=== PATIENT | female | born 1975 | race Caucasian/White ===

== ENCOUNTER 2016-10-14 07:14 | Emergency (ER) | payer MEDICAID ==
[~2016-10-14] VITALS: Ht 167.6 cm; Wt 98.2 kg
[2016-10-14 07:24] VITALS: BP 138/85; PULSE 75; RESP 16; TEMP 98.2; O2SAT 97
[2016-10-14] MEDS ORDERED: NAPR500 PO (07:28)
[2016-10-14] MEDS ORDERED: CYCL5TAB PO (07:28)
[2016-10-14] MEDS ORDERED: ULTR50TA5 PO (07:51)
[2016-10-14] MEDS ORDERED: AMOX500T PO (07:51)
--- NOTE | 2016-10-14 07:52 | PD ---
HPI Chief Complaint: Oral / Dental Pain or Problem Time Seen by Provider: 07:47 Travel History International Travel<30 days: No Contact w/Intl Traveler<30days: No Traveled to known affect area: No History of Present Illness HPI vacationing in area, started to have left molar toothache and throbbing last night getting worse PFSH Past Medical History Diminished Hearing: No Deep Vein Thrombosis: Yes Influenza Vaccination: No ?: Not Past Surgical History Other Surgery: Yes (ivc filter) Social History Alcohol Use: No Tobacco Use: No Allergies-Medications (Allergen,Severity, Reaction): Coded Allergies: No Known Allergies (Unverified , 10/14/16) Reported Meds & Prescriptions Reported Meds & Active Scripts Active Reported Flexeril (Cyclobenzaprine HCl) 5 Mg Tab 5 Mg PO TID Naprosyn (Naproxen) 500 Mg Tab 500 Mg PO BID Review of Systems Except as stated in HPI: all other systems reviewed are Neg HENT: Positive: Other (toothache) Physical Exam Narrative GENERAL: SKIN: Warm and dry. HEAD: Atraumatic. Normocephalic. EYES: Pupils equal and round. No scleral icterus. No injection or drainage. ENT: No nasal bleeding or discharge. Mucous membranes pink and moist....left mandibular m2 pericoronitis, no facial extension, lad anterior neck noted, soft floor of mouth NECK: Trachea midline. No JVD. CARDIOVASCULAR: Regular rate and rhythm. RESPIRATORY: No accessory muscle use. Clear to auscultation. Breath sounds equal bilaterally. GASTROINTESTINAL: Abdomen soft, non-tender, nondistended. Hepatic and splenic margins not palpable. MUSCULOSKELETAL: Extremities without clubbing, cyanosis, or edema. No obvious deformities. NEUROLOGICAL: Awake and alert. No obvious cranial nerve deficits. Motor grossly within normal limits. Five out of 5 muscle strength in the arms and legs. Normal speech. PSYCHIATRIC: Appropriate mood and affect; insight and judgment normal. Data Data Last Documented VS Vital Signs Date Time Temp Pulse Resp B/P Pulse Ox O2 Delivery O2 Flow Rate FiO2 10/14/16 07:24 98.2 75 16 138/85 97 MDM Medical Decision Making Medical Screen Exam Complete: Yes Emergency Medical Condition: Yes Differential Diagnosis toothache Narrative Course pericoronitis early noted on exam will give amoxil and ultram for pain control and advise f/u with dentist Diagnosis Primary Impression: early pericoronitis Scripts Tramadol (Ultram)50 Mg Tab50 Mg PO Q4H PRN (PAIN) #20 TAB Ref 0 Prov:Elgin Faye MD 10/14/16 Amoxicillin 500 Mg Sks436 Mg PO BID #20 TAB Ref 0 Prov:Elgin Faye MD 10/14/16 Disposition: 01 DISCHARGE HOME Condition: Stable Elgin Faye MD Oct 14, 2016 07:52
[2016-10-14] MEDS ORDERED: AMOXICILLIN (TRIHYDRATE) 500 MG CAP PO ONE (08:00)
== END 2016-10-14 08:01 | disposition home or self-care (01) ==
LOC: PHEFT 07:14
DX: K05.30 Chronic periodontitis, unspecified (principal); Z86.718 Personal history of other venous thrombosis and embolism
CPT/HCPCS: 99284